=== PATIENT | male | born 1955 | race Caucasian/White ===

== ENCOUNTER → 2022-06-20 | Outpatient (CLI) | payer MEDICARE ==
[~2022-06-20] MED LIST: ASPIRIN CHEWABL81 MG PO; AZITHROMYCIN500 MG PO; BUMETANIDE1 MG PO; CARDURA4 MG PO; CATAPRES0.3 MG PO; COZAAR 50MG TAB50 MG PO; CRESTOR 10 MG T10 MG PO; ELIQUIS2.5 MG PO; HYDRALAZINE HC100 MG PO; IMDUR ER TAB 3030 MG PO; INSPRA 25 MG TA25 MG PO; ISOSORBIDE MONO60 MG PO; K-DUR TAB 20 M20 MEQ PO; KEFLEX500 MG PO; LANTUS INS100 UTS/M1 SC; LANTUS SOL100 UNIT/1 SQ; LASIX40 MG PO; LOPRESSOR 25 MG25 MG PO; LOPRESSOR 50 MG50 MG PO; MORPHINE PUMP; NORVASC 5 MG TAB5 MG PO; NOVOLOG FL100 UNIT/1 SQ; OMNICEF 300 MG300 MG PO; PREDNISONE 20 M20 MG PO; SYMBICORT 160-1 INHA INH; TYLENOL 325MG325 MG PO; VENTOLIN HFA 66.7 GM INH; VISTARIL 25 MG25 MG PO; ZAROXOLYN/DIUL2.5 MG PO; ZESTRIL10 MG PO
== END ==
LOC: NM 08:00
DX: I20.0 Unstable angina (principal)
CPT/HCPCS: 78452; 93017; A9502; J2785

== ENCOUNTER → 2022-06-26 | Outpatient (CLI) | payer MEDICARE ==
[~2022-06-26] MED LIST changes: +COZAAR50 MG PO; +ISOSORBIDE MONO30 MG PO; +K-TAB ER10 MEQ PO; +LANTUS100 UNIT/1 SQ; +PHOSLO 667 MG667 MG PO; +VISTARIL25 MG PO; +ZOLOFT25 MG PO
[2022-06-26 17:15] LABS: HEMOGLOBIN 10.5 gm/dl (14.0-17.5); RED BLOOD COUNT 3.3 M/UL (4.20-5.50); WHITE BLOOD COUNT 10.1 K/UL (4.5-11.0)
== END ==
LOC: LAB 16:27
PROVIDERS: Internal Medicine Interventional Cardiology
DX: R94.39 Abnormal result of other cardiovascular function study (principal); I13.0 Hypertensive heart and chronic kidney disease with heart failure and stage 1 through stage 4 chronic kidney disease, or unspecified chronic kidney disease; E11.22 Type 2 diabetes mellitus with diabetic chronic kidney disease; I50.31 Acute diastolic (congestive) heart failure; N18.9 Chronic kidney disease, unspecified; E11.51 Type 2 diabetes mellitus with diabetic peripheral angiopathy without gangrene; I48.0 Paroxysmal atrial fibrillation; E78.5 Hyperlipidemia, unspecified; I20.9 Angina pectoris, unspecified; R06.02 Shortness of breath
CPT/HCPCS: 36415; 80048; 85025; 85610; 85730; 93005

== ENCOUNTER → 2022-06-30 | Outpatient (CLI) | payer MEDICARE, OTHER | LOC: CATH 07:06 | DX: I25.118 Atherosclerotic heart disease of native coronary artery with other forms of angina pectoris (principal); I13.2 Hypertensive heart and chronic kidney disease with heart failure and with stage 5 chronic kidney disease, or end stage renal disease; E11.22 Type 2 diabetes mellitus with diabetic chronic kidney disease; N18.6 End stage renal disease; I50.42 Chronic combined systolic (congestive) and diastolic (congestive) heart failure; I48.0 Paroxysmal atrial fibrillation; Z99.2 Dependence on renal dialysis; Z95.1 Presence of aortocoronary bypass graft; J44.9 Chronic obstructive pulmonary disease, unspecified; K21.9 Gastro-esophageal reflux disease without esophagitis; E78.5 Hyperlipidemia, unspecified; E11.51 Type 2 diabetes mellitus with diabetic peripheral angiopathy without gangrene; G47.33 Obstructive sleep apnea (adult) (pediatric); E66.9 Obesity, unspecified; Z68.36 Body mass index [BMI] 36.0-36.9, adult; Z79.82 Long term (current) use of aspirin; Z79.4 Long term (current) use of insulin; Z79.01 Long term (current) use of anticoagulants; Z79.899 Other long term (current) drug therapy; Z88.1 Allergy status to other antibiotic agents | CPT/HCPCS: 82962; 99152; 99153; C1769; J1644; J2250; J3010; Q9965 ==